=== PATIENT | female | born 1960 ===

== ENCOUNTER 2021-01-31 15:27 | Outpatient (CLI) | payer OTHER ==
[2021-02-03 13:01] LABS: NIL 0.03 IU/mL; TB1-NIL 0.02 IU/mL; TB2-NIL 0.01 IU/mL
== END 2021-01-31 15:28 | disposition home or self-care (01) ==
LOC: LAB.S 15:27
PROVIDERS: ATTEND Family Medicine
DX: Z11.1 Encounter for screening for respiratory tuberculosis (principal)
CPT/HCPCS: 36415; 86480